=== PATIENT | female | born 1995 ===

== ENCOUNTER 2024-12-11 15:18 | Outpatient (CLI) | payer BC ==
[2024-12-11 16:22] LABS: Follicle Stimulating Hormone 4.79 IU/L (SEE BELOW)
[2024-12-11 16:24] LABS: Thyroid Stimulating Hormone 1.6 uIU/mL (0.55-4.78)
[2024-12-11 16:41] LABS: Beta HCG, Quantitative 0.5 mIU/mL (1.5-4.2)
== END 2024-12-12 17:00 | disposition home or self-care (01) ==
LOC: LAB 15:18
PROVIDERS: ATTEND Student in an Organized Health Care Education/Training Program
DX: N92.0 Excessive and frequent menstruation with regular cycle (principal)
CPT/HCPCS: 36415; 83001; 83002; 84146; 84403; 84443; 84702